=== PATIENT | male | born 1955 | race Two or more races ===

== ENCOUNTER → 2024-03-01 | Emergency (ER) | payer OTHER ==
[~2024-03-01] VITALS: Ht 172.7 cm; Wt 56.7 kg
[~2024-03-01] MED LIST: KETOROLAC TROMETHAMINE 30 MG VIAL IM ONE; LOSARTAN POTASS50 MG; TYLENOL ARTHRI650 MG PO
== END | disposition home or self-care (01) ==
LOC: ER 14:09
DX: M79.671 Pain in right foot (principal); I10 Essential (primary) hypertension
CPT/HCPCS: 73630; 96372; 99283; J1885